=== PATIENT | male | born 1965 | race African-American/Black ===

== ENCOUNTER 2018-04-13 12:55 | Emergency (ER) | payer OTHER, MEDICAID ==
[~2018-04-13] VITALS: Ht 175.3 cm; Wt 86.0 kg
[~2018-04-13 12:55] MED LIST: AMLO10TA80; GABA-529; HYDR-1348; HYDR-4134; METO100T3; NPH INSULIN; REGULAR INSULIN; SIMV10TA6; TRAM50TA3
[2018-04-13] MEDS ORDERED: FLUORESCEIN SODIUM 1MG/STRIP OP ONE (13:15)
[2018-04-13] MEDS ORDERED: TETRACAINE 0.5% OPHTH DROPS 4ML OP ONE (13:15)
[2018-04-13] MEDS ORDERED: MORPHINE SULFATE 4 MG/ML CPJ (NOT FOR IM USE) IV STA (14:12)
[2018-04-13] MEDS ORDERED: KETOROLAC 30MG/ML VIAL IV STA (14:12)
[2018-04-13] MEDS ORDERED: SODIUM CHLORIDE 0.9% 1,000 ML IV ONE (14:12)
[2018-04-13] MEDS ORDERED: ONDANSETRON HCL 4MG/2ML VIAL IV STA (14:12)
[2018-04-13] MEDS ORDERED: ACYCLOVIR INJ 500 MG in DEXT 5% WATER 100 ML IV SCH (14:15)
[2018-04-13] MEDS ORDERED: METHYLPREDNISOLONE SOD SUCC 125 MG/2 ML VIAL IV ONE (14:15)
[2018-04-13 15:08] LABS: HEMATOCRIT. 44.4 % (42.0-52.0); HEMOGLOBIN. 15.6 g/dL (14.0-18.0); MEAN CORPUSCULAR HEMOGLOBIN 29.1 pg (28.0-32.0); MEAN CORPUSCULAR VOLUME 82.8 fL (80.0-94.0); MEAN PLATELET VOLUME 9.3 fl (7.4-10.4); PLATELET 285 x1000/uL (130-400); RED BLOOD CELL COUNT 5.36 mill/uL (4.7-6.1); RED CELL DISTRIBUTION WIDTH 13.9 % (11.6-14.6)
[2018-04-13 15:15] LABS: CHLORIDE 97 mEq/L (98-107)
[2018-04-13 15:18] LABS: ETHANOL BLOOD < 10 mg/dL
[2018-04-13 15:22] LABS: CREATINE KINASE 84 IU/L (39-308)
[2018-04-13 15:24] LABS: PROTHROMBIN TIME 10.1 sec (9.4-11.6)
[2018-04-13 15:38] LABS: PLATELET ESTIMATE NORMAL
[2018-04-13 17:21] LABS: CLARITY URINE CLEAR (CLEAR); COLOR URINE YELLOW (YELLOW); KETONES URINE NEGATIVE (NEGATIVE); LEUKOCYTE ESTERASE URINE NEGATIVE (NEGATIVE); NITRITE URINE NEGATIVE (NEGATIVE); OCCULT BLOOD URINE NEGATIVE (NEGATIVE); PROTEIN URINE NEGATIVE (NEGATIVE); SPECIFIC GRAVITY URINE 1.037 (1.005-1.030)
[2018-04-13 17:48] LABS: *AMPHETAMINES SCREEN URINE NEGATIVE (NEGATIVE); *BARBITURATES SCREEN URINE NEGATIVE (NEGATIVE); *BENZODIAZEPINES SCREEN URINE NEGATIVE (NEGATIVE)
[2018-04-13 17:49] LABS: *COCAINE SCREEN URINE NEGATIVE (NEGATIVE); CANNABINOID URINE SCREEN NEGATIVE (NEGATIVE); METHADONE URINE SCREEN NEGATIVE (NEGATIVE); OPIATES URINE SCREEN PRESUMTIVE POSITIVE (NEGATIVE); PHENCYCLIDINE URINE SCREEN NEGATIVE (NEGATIVE)
[2018-04-13] MEDS ORDERED: CLONIDINE 0.2MG TABLET PO ONE (19:45)
[2018-04-13] MEDS ORDERED: INSULIN REGULAR (HUMULIN R) 300UNITS/3ML SUBCUT ONE (20:15)
[2018-04-13 21:47] VITALS: BP 155/93
== END 2018-04-13 22:03 | disposition short-term general hospital (02) ==
LOC: ER 12:55 → EDBEDREQ 17:21 → CANRESERV 20:15 → ENRESERV 20:15 → ER 22:03 → CANBEDREQ 23:31
DX: B02.30 Zoster ocular disease, unspecified (principal); E11.65 Type 2 diabetes mellitus with hyperglycemia; I10 Essential (primary) hypertension; R51 Headache; R94.31 Abnormal electrocardiogram [ECG] [EKG]; Z87.828 Personal history of other (healed) physical injury and trauma; Z79.01 Long term (current) use of anticoagulants; Z79.4 Long term (current) use of insulin
CPT/HCPCS: 36415; 70450; 71045; 80053; 80305; 81003; 82550; 82962; 83605; 84443; 84484; 85025; 85610; 87040; 87086; 93005; 96365; 96366; 96372; 96375; 99285; G0482; J0133; J1815; J1885; J2270; J2405; J2930; J7030; J7060